=== PATIENT | female | born 1995 | race Caucasian/White ===

== ENCOUNTER 2019-04-19 12:54 | Inpatient (IN) ==
[2019-04-19 13:39] LABS: Basophils % 0.6 %; Eosinophils % 0.1 %; Hematocrit 40.6 % (35.3-44.9); Hemoglobin 13.9 g/dL (11.5-15.4); Immature Granulocytes % 0.4 % (0-4); Lymphocytes # 1.7 K/mcL (0.6-4.6); Lymphocytes % 24.9 %; Mean Corpuscular HGB Conc 34.2 g/dL (31.6-35.5); Mean Corpuscular Volume 93.3 fL (83.0-100.0); Mean Platelet Volume 10.3 fL (9.4-12.4); Monocytes # 0.3 K/mcL (0.0-1.3); Monocytes % 3.8 %; Neutrophils # 4.8 K/mcL (1.6-8.9); Platelet Count 230 K/mcL (140-400); Red Blood Count 4.35 M/mcL (3.82-4.97); Red Cell Distribution Width 11.1 % (11.5-14.5); Segmented Neutrophils % 70.2 %; White Blood Count 6.9 K/mcL (4.3-11.1)
[2019-04-19 13:41] LABS: Bilirubin,Urine Negative (Negative); Blood,Urine Negative (Negative); Clarity,Urine Clear (Clear); Color,Urine Dark Yellow (Yellow); Glucose,Urine (UA) Normal (Normal); Ketones,Urine Trace mg/dL (Negative); Leukocyte Esterase,Urine Small (Negative); Nitrite,Urine Negative (Negative); Protein,Urine Trace mg/dL (Neg-Trace); Specific Gravity,Urine 1.029 (1.010-1.025); Urobilinogen,Urine Normal (Normal)
[2019-04-19 13:44] LABS: Bacteria,Urine Few per hpf (None-Few); Hyaline Casts,Urine None Seen per lpf (None-Few); RBC,Urine 0-3 per hpf (0-3); Squamous Epithelial Cell,Urine Many per lpf (None-Few)
[2019-04-19 14:06] LABS: Amphetamine Screen,Urine Negative ng/mL (Cutoff=1000); Barbiturate Screen,Urine Negative ng/mL (Cutoff=200); Benzodiazepines Screen,Urine Negative ng/mL (Cutoff=200); Cannabinoid Screen,Urine Negative ng/mL (Cutoff = 50); Cocaine Screen,Urine Negative ng/mL (Cutoff= 300); Opiate Screen,Urine Negative ng/mL (Cutoff=300); Phencyclidine Screen,Urine Negative ng/mL (Cutoff=25)
[2019-04-19 14:08] LABS: Acetaminophen < 10 mcg/mL (10-20); Alanine Aminotransferase 7 Units/L (7-52); Albumin 4.7 g/dL (3.5-5.7); Albumin/Globulin Ratio 1.7 (1.1-2.2); Alkaline Phosphatase 51 Units/L (34-104); Aspartate Amino Transferase 11 Units/L (13-39); BUN/Creatinine Ratio 13 (6-26); Bilirubin,Total 2.3 mg/dL (0.3-1.0); Blood Urea Nitrogen 11 mg/dL (6-20); Carbon Dioxide 24 mEq/L (23-29); Chloride 104 mEq/L (98-107); Globulin 2.7 g/dL (2.4-3.5); Glucose 144 mg/dL (70-105); Osmolality,Calculated 290 (280-300); Salicylate < 2.5 mg/dL (15.0-30.0); Sodium 139 mEq/L (136-145); Thyroid Stimulating Hormone 1.861 mcIU/mL (0.340-5.600); Total Protein 7.4 g/dL (6.4-8.9); eGFR For African Americans > 60 (> 60); eGFR For Non-African Americans > 60 (> 60)
[2019-04-19] MEDS ORDERED: Haloperidol Lactate 5 MG/ML VIAL IM PRN (18:02)
[2019-04-19] MEDS ORDERED: MOM Conc 10 ML UD.LIQ PO PRN (18:02)
[2019-04-19] MEDS ORDERED: *HR* LORazepam 1 MG TABLET PO PRN (18:02)
[2019-04-19] MEDS ORDERED: Ibuprofen 400 MG TABLET PO PRN (18:02)
[2019-04-19] MEDS ORDERED: *HR* LORazepam 2 MG/ML VIAL IM PRN (18:02)
[2019-04-19] MEDS ORDERED: Mag Hydrox/Al Hydrox/Simeth 30 ML UDC PO PRN (18:02)
[2019-04-19] MEDS: hydrOXYzine pamoate 25 MG CAPSULE PO PRN (19:29)
[2019-04-19] MEDS: traZODone 50 MG TABLET PO PRN (22:35)
[2019-04-20] MEDS ORDERED: Td (TENIVAC) Vaccine 0.5 ML VIAL IM ONE (09:39)
[2019-04-20] MEDS: traZODone 50 MG TABLET PO PRN (20:31)
[2019-04-20] MEDS: hydrOXYzine pamoate 25 MG CAPSULE PO PRN (20:31)
[2019-04-21] MEDS: hydrOXYzine pamoate 25 MG CAPSULE PO PRN (21:06)
[2019-04-21] MEDS: traZODone 50 MG TABLET PO PRN (23:01)
[2019-04-22] MEDS: traZODone 50 MG TABLET PO PRN (21:52)
[2019-04-22] MEDS: hydrOXYzine pamoate 25 MG CAPSULE PO PRN (21:52)
[2019-04-23 08:41] VITALS: BP 96/61
== END 2019-04-23 15:40 | disposition home or self-care (01) | DRG 751 ==
LOC: EMEROOARM 12:54 → 1ANU 16:19
PROVIDERS: ADMIT Psychiatry & Neurology Psychiatry; ATTEND Psychiatry & Neurology Psychiatry

== ENCOUNTER 2019-04-28 12:06 | Inpatient (IN) ==
[2019-04-28 12:37] LABS: Basophils % 0.4 %; Eosinophils % 0.2 %; Hematocrit 37.1 % (35.3-44.9); Hemoglobin 12.9 g/dL (11.5-15.4); Immature Granulocytes % 0.4 % (0-4); Lymphocytes # 1.4 K/mcL (0.6-4.6); Lymphocytes % 16.8 %; Mean Corpuscular HGB Conc 34.8 g/dL (31.6-35.5); Mean Corpuscular Hemoglobin 31.4 pg (28.0-33.3); Mean Corpuscular Volume 90.3 fL (83.0-100.0); Mean Platelet Volume 10.6 fL (9.4-12.4); Monocytes # 0.3 K/mcL (0.0-1.3); Monocytes % 3.3 %; Neutrophils # 6.5 K/mcL (1.6-8.9); Platelet Count 207 K/mcL (140-400); Red Blood Count 4.11 M/mcL (3.82-4.97); Segmented Neutrophils % 78.9 %; White Blood Count 8.3 K/mcL (4.3-11.1)
[2019-04-28 12:57] LABS: Acetaminophen < 10 mcg/mL (10-20); Alanine Aminotransferase 7 Units/L (7-52); Albumin 4.6 g/dL (3.5-5.7); Albumin/Globulin Ratio 1.5 (1.1-2.2); Alkaline Phosphatase 48 Units/L (34-104); Aspartate Amino Transferase 12 Units/L (13-39); BUN/Creatinine Ratio 9 (6-26); Bilirubin,Direct 0.2 mg/dL (0.0-0.2); Bilirubin,Indirect 1.4 mg/dL (0.0-1.0); Bilirubin,Total 1.6 mg/dL (0.3-1.0); Blood Urea Nitrogen 8 mg/dL (6-20); Calcium 9.6 mg/dL (8.6-10.3); Carbon Dioxide 17 mEq/L (23-29); Chloride 102 mEq/L (98-107); Ethanol < 10 mg/dL (Less than 10); Glucose 145 mg/dL (70-105); Osmolality,Calculated 285 (280-300); Potassium 3.4 mEq/L (3.5-5.1); Salicylate < 2.5 mg/dL (15.0-30.0); Sodium 137 mEq/L (136-145); Total Protein 7.6 g/dL (6.4-8.9); eGFR For African Americans > 60 (> 60); eGFR For Non-African Americans > 60 (> 60)
[2019-04-28 13:09] LABS: Creatine Kinase 54 Units/L (30-223)
[2019-04-28 13:30] LABS: Bilirubin,Urine Negative (Negative); Blood,Urine Negative (Negative); Clarity,Urine Clear (Clear); Color,Urine Yellow (Yellow); Glucose,Urine (UA) Normal (Normal); Ketones,Urine Negative (Negative); Leukocyte Esterase,Urine Negative (Negative); Nitrite,Urine Negative (Negative); PH,Urine 5.5 pH Units (5.0-8.0); Protein,Urine Trace mg/dL (Neg-Trace); Specific Gravity,Urine 1.019 (1.010-1.025); Urobilinogen,Urine Normal (Normal)
[2019-04-28 13:40] LABS: Amphetamine Screen,Urine Negative ng/mL (Cutoff=1000); Barbiturate Screen,Urine Negative ng/mL (Cutoff=200); Benzodiazepines Screen,Urine Negative ng/mL (Cutoff=200); Cannabinoid Screen,Urine Negative ng/mL (Cutoff = 50); Cocaine Screen,Urine Negative ng/mL (Cutoff= 300); Opiate Screen,Urine Negative ng/mL (Cutoff=300); Phencyclidine Screen,Urine Negative ng/mL (Cutoff=25)
[2019-04-28] MEDS ORDERED: Naloxone 0.4 MG/ML INJ IVP PRN (16:57)
[2019-04-29 05:37] LABS: Basophils % 0.5 %; Eosinophils % 0.5 %; Hematocrit 34.3 % (35.3-44.9); Hemoglobin 11.6 g/dL (11.5-15.4); Immature Granulocytes % 0.3 % (0-4); Lymphocytes # 1.9 K/mcL (0.6-4.6); Lymphocytes % 25.5 %; Mean Corpuscular HGB Conc 33.8 g/dL (31.6-35.5); Mean Corpuscular Volume 94.5 fL (83.0-100.0); Monocytes # 0.6 K/mcL (0.0-1.3); Neutrophils # 4.8 K/mcL (1.6-8.9); Platelet Count 183 K/mcL (140-400); Red Blood Count 3.63 M/mcL (3.82-4.97); Red Cell Distribution Width 11.2 % (11.5-14.5); Segmented Neutrophils % 65.2 %; White Blood Count 7.4 K/mcL (4.3-11.1)
[2019-04-29 05:58] LABS: Alanine Aminotransferase 6 Units/L (7-52); Albumin 4.2 g/dL (3.5-5.7); Albumin/Globulin Ratio 1.6 (1.1-2.2); Alkaline Phosphatase 45 Units/L (34-104); Aspartate Amino Transferase 11 Units/L (13-39); BUN/Creatinine Ratio 10 (6-26); Bilirubin,Total 1.3 mg/dL (0.3-1.0); Blood Urea Nitrogen 9 mg/dL (6-20); Calcium 9.5 mg/dL (8.6-10.3); Carbon Dioxide 24 mEq/L (23-29); Chloride 107 mEq/L (98-107); Globulin 2.6 g/dL (2.4-3.5); Glucose 82 mg/dL (70-105); Osmolality,Calculated 288 (280-300); Potassium 3.9 mEq/L (3.5-5.1); Sodium 140 mEq/L (136-145); Total Protein 6.8 g/dL (6.4-8.9); eGFR For African Americans > 60 (> 60); eGFR For Non-African Americans > 60 (> 60)
[2019-04-30 03:09] LABS: Hematocrit 33.9 % (35.3-44.9); Hemoglobin 11.7 g/dL (11.5-15.4); Mean Corpuscular HGB Conc 34.5 g/dL (31.6-35.5); Mean Corpuscular Hemoglobin 32.3 pg (28.0-33.3); Mean Corpuscular Volume 93.6 fL (83.0-100.0); Mean Platelet Volume 10.8 fL (9.4-12.4); Platelet Count 189 K/mcL (140-400); Red Blood Count 3.62 M/mcL (3.82-4.97); Red Cell Distribution Width 11.1 % (11.5-14.5); White Blood Count 8.2 K/mcL (4.3-11.1)
[2019-04-30 03:17] LABS: Alanine Aminotransferase 7 Units/L (7-52); Albumin 4.2 g/dL (3.5-5.7); Albumin/Globulin Ratio 1.8 (1.1-2.2); Alkaline Phosphatase 42 Units/L (34-104); Aspartate Amino Transferase 15 Units/L (13-39); Bilirubin,Total 1.3 mg/dL (0.3-1.0); Blood Urea Nitrogen 10 mg/dL (6-20); Calcium 9.3 mg/dL (8.6-10.3); Carbon Dioxide 24 mEq/L (23-29); Chloride 106 mEq/L (98-107); Globulin 2.3 g/dL (2.4-3.5); Glucose 87 mg/dL (70-105); Osmolality,Calculated 282 (280-300); Potassium 3.8 mEq/L (3.5-5.1); Sodium 137 mEq/L (136-145); Total Protein 6.5 g/dL (6.4-8.9)
[2019-04-30 03:56] LABS: BUN/Creatinine Ratio 11 (6-26); eGFR For African Americans > 60 (> 60); eGFR For Non-African Americans > 60 (> 60)
[2019-04-30] MEDS ORDERED: Naloxone 0.4 MG/ML INJ IVP PRN (09:14)
[2019-04-30] MEDS ORDERED: Acetaminophen 325 MG TABLET PO ONE (21:33)
[2019-05-01 08:07] VITALS: BP 121/72
== END 2019-05-01 18:40 | disposition other institution (70) | DRG 817 ==
LOC: EMEROOARM 12:06 → 3BNU 12:06
PROVIDERS: ADMIT Family Medicine; ATTEND Family Medicine

== ENCOUNTER 2019-05-01 18:49 | Inpatient (IN) ==
[2019-05-01] MEDS ORDERED: Acetaminophen 325 MG TABLET PO PRN (18:57)
[2019-05-01] MEDS ORDERED: *HR* LORazepam 1 MG TABLET PO PRN (18:57)
[2019-05-01] MEDS ORDERED: Haloperidol Lactate 5 MG/ML VIAL IM PRN (18:57)
[2019-05-01] MEDS ORDERED: MOM Conc 10 ML UD.LIQ PO PRN (18:57)
[2019-05-01] MEDS ORDERED: *HR* LORazepam 2 MG/ML VIAL IM PRN (18:57)
[2019-05-02] MEDS: hydrOXYzine pamoate 25 MG CAPSULE PO PRN (22:16)
[2019-05-02] MEDS: Mirtazapine 15 MG TABLET PO SCH (22:17)
[2019-05-02] MEDS: traZODone 50 MG TABLET PO PRN (22:17)
[2019-05-03] MEDS: ARIPiprazole 5 MG TABLET PO SCH (15:32)
[2019-05-03] MEDS: Mirtazapine 15 MG TABLET PO SCH (20:52)
[2019-05-03] MEDS: traZODone 50 MG TABLET PO PRN (20:52)
[2019-05-03] MEDS: hydrOXYzine pamoate 25 MG CAPSULE PO PRN (20:52)
[2019-05-04] MEDS ORDERED: Mag Hydrox/Al Hydrox/Simeth 30 ML UDC PO PRN (00:57)
[2019-05-04] MEDS: ARIPiprazole 5 MG TABLET PO SCH (09:36)
[2019-05-04] MEDS: Mirtazapine 15 MG TABLET PO SCH (21:55)
[2019-05-05] MEDS: ARIPiprazole 5 MG TABLET PO SCH (08:50)
[2019-05-05] MEDS: hydrOXYzine pamoate 25 MG CAPSULE PO PRN (21:20)
[2019-05-05] MEDS: traZODone 50 MG TABLET PO PRN (21:20)
[2019-05-05] MEDS: Mirtazapine 15 MG TABLET PO SCH (21:20)
[2019-05-06] MEDS: ARIPiprazole 5 MG TABLET PO SCH (08:56)
[2019-05-06] MEDS: traZODone 50 MG TABLET PO PRN (21:31)
[2019-05-06] MEDS: hydrOXYzine pamoate 25 MG CAPSULE PO PRN (21:31)
[2019-05-06] MEDS: Mirtazapine 15 MG TABLET PO SCH (21:33)
[2019-05-07] MEDS: ARIPiprazole 5 MG TABLET PO SCH (08:36)
[2019-05-07] MEDS: traZODone 50 MG TABLET PO PRN (20:58)
[2019-05-07] MEDS: Mirtazapine 15 MG TABLET PO SCH (20:58)
[2019-05-07] MEDS: hydrOXYzine pamoate 25 MG CAPSULE PO PRN (20:58)
[2019-05-08] MEDS: ARIPiprazole 5 MG TABLET PO SCH (08:38)
[2019-05-08 08:40] VITALS: BP 105/65
== END 2019-05-08 11:15 | disposition home or self-care (01) | DRG 751 ==
LOC: 1ANU 18:49
PROVIDERS: ADMIT Psychiatry & Neurology Forensic Psychiatry; ATTEND Psychiatry & Neurology Forensic Psychiatry

== ENCOUNTER 2019-11-15 09:45 | Inpatient (IN) ==
[2019-11-15 10:24] LABS: Amphetamine Screen,Urine Negative ng/mL (Cutoff=1000); Barbiturate Screen,Urine Negative ng/mL (Cutoff=200); Benzodiazepines Screen,Urine Negative ng/mL (Cutoff=200); Cannabinoid Screen,Urine Negative ng/mL (Cutoff = 50); Cocaine Screen,Urine Negative ng/mL (Cutoff= 300); Opiate Screen,Urine Negative ng/mL (Cutoff=300); Phencyclidine Screen,Urine Negative ng/mL (Cutoff=25)
[2019-11-15 10:27] LABS: Basophils % 0.4 %; Eosinophils % 0.4 %; Hematocrit 42.9 % (35.3-44.9); Hemoglobin 14.1 g/dL (11.5-15.4); Immature Granulocytes % 0.2 % (0-4); Lymphocytes # 1.7 K/mcL (0.6-4.6); Lymphocytes % 19.4 %; Mean Corpuscular HGB Conc 32.9 g/dL (31.6-35.5); Mean Corpuscular Hemoglobin 31.1 pg (28.0-33.3); Mean Corpuscular Volume 94.5 fL (83.0-100.0); Mean Platelet Volume 10.4 fL (9.4-12.4); Monocytes # 0.3 K/mcL (0.0-1.3); Neutrophils # 6.5 K/mcL (1.6-8.9); Platelet Count 229 K/mcL (140-400); Red Blood Count 4.54 M/mcL (3.82-4.97); Red Cell Distribution Width 11.5 % (11.5-14.5); Segmented Neutrophils % 75.6 %; White Blood Count 8.5 K/mcL (4.3-11.1)
[2019-11-15 10:47] LABS: Acetaminophen < 10 mcg/mL (10-20); BUN/Creatinine Ratio 13 (6-26); Blood Urea Nitrogen 10 mg/dL (6-20); Calcium 10.3 mg/dL (8.6-10.3); Carbon Dioxide 25 mEq/L (23-29); Chloride 104 mEq/L (98-107); Chol/HDL Ratio 3.2 (0-4.9); Cholesterol 172 mg/dL (< 200); Ethanol < 10 mg/dL (Less than 10); Glucose 91 mg/dL (70-105); HDL Cholesterol 53 mg/dL (40-59); LDL Cholesterol,Calculated 101 mg/dL (< 100); Osmolality,Calculated 289 (280-300); Potassium 3.8 mEq/L (3.5-5.1); Salicylate < 2.5 mg/dL (15.0-30.0); Sodium 140 mEq/L (136-145); Triglycerides 90 mg/dL (< 150); eGFR For African Americans > 60 (> 60); eGFR For Non-African Americans > 60 (> 60)
[2019-11-15 10:55] LABS: Estimated Average Glucose 91 mg/dl; Hemoglobin A1C 4.8 %
[2019-11-15] MEDS ORDERED: *HR* LORazepam 1 MG TABLET PO PRN (11:39)
[2019-11-15] MEDS ORDERED: Haloperidol Lactate 5 MG/ML VIAL IM PRN (11:39)
[2019-11-15] MEDS ORDERED: *HR* LORazepam 2 MG/ML VIAL IM PRN (11:39)
[2019-11-15] MEDS ORDERED: Mag Hydrox/Al Hydrox/Simeth 30 ML UDC PO PRN (11:39)
[2019-11-15] MEDS ORDERED: haloperidoL 5 MG TABLET PO PRN (11:39)
[2019-11-15] MEDS ORDERED: traZODone 50 MG TABLET PO PRN (11:39)
[2019-11-15] MEDS ORDERED: MOM Conc 10 ML UD.LIQ PO PRN (11:39)
[2019-11-15] MEDS ORDERED: Acetaminophen 325 MG TABLET PO PRN (11:39)
[2019-11-16] MEDS ORDERED: QUEtiapine Fumarate 25 MG TABLET PO PRN (09:45)
[2019-11-16] MEDS: BuPROPion XL (24 HR) 150 MG TABLET PO SCH (10:12)
[2019-11-16] MEDS: ARIPiprazole 5 MG TABLET PO SCH (10:13)
[2019-11-16] MEDS ORDERED: Tdap (Boostrix) Vaccine 0.5 ML SYRINGE IM ONE (12:00)
[2019-11-16] MEDS: QUEtiapine Fumarate 25 MG TABLET PO SCH (20:54)
[2019-11-16] MEDS: hydrOXYzine pamoate 25 MG CAPSULE PO PRN (20:54)
[2019-11-17] MEDS: ARIPiprazole 5 MG TABLET PO SCH (08:49)
[2019-11-17] MEDS: BuPROPion XL (24 HR) 150 MG TABLET PO SCH (08:49)
[2019-11-17] MEDS: QUEtiapine Fumarate 25 MG TABLET PO SCH (21:08)
[2019-11-17] MEDS: hydrOXYzine pamoate 25 MG CAPSULE PO PRN (21:08)
[2019-11-18] MEDS: BuPROPion XL (24 HR) 150 MG TABLET PO SCH (08:03)
[2019-11-18] MEDS: ARIPiprazole 5 MG TABLET PO SCH (08:03)
[2019-11-18 08:20] VITALS: BP 114/73
== END 2019-11-18 13:45 | disposition home or self-care (01) | DRG 751 ==
LOC: EMEROOARM 09:45 → 1ANU 11:34
PROVIDERS: ADMIT Psychiatry & Neurology Psychiatry; ATTEND Psychiatry & Neurology Psychiatry